=== PATIENT | male | born 1980 | race African-American/Black ===

== ENCOUNTER 2017-06-15 13:14 | Emergency (ER) | payer SELFPAY | END 2017-06-15 13:20 | disposition left against medical advice (07) | LOC: UCEAST 13:14 | DX: Z53.21 Procedure and treatment not carried out due to patient leaving prior to being seen by health care provider (principal) ==

== ENCOUNTER 2018-06-07 11:27 | Emergency (ER) | payer OTHER ==
[2018-06-07 11:52] VITALS: BP 103/72
--- NOTE | 2018-06-16 21:37 | UC ---
Back Pain HPI - HPI Summary HPI Summary: ONSET OF LOW BACK PAIN AFTER PLAYING SOCCER COUPLE OF DAYS AGO. WORSE WITH MOVEMENT. DENIES NUMBNESS/TINGLING OF HIS LOWER EXTREMITIES. NO SADDLE ANESTHESIA. NO LOSS OF BOWEL OR BLADDER CONTROL. THINKS HE MIGHT HAVE PULLED A MUSCLE. - History of Current Complaint Chief Complaint: UCBackPain Stated Complaint: BACK PAIN Time Seen by Provider: 06/07/18 12:37 Hx Obtained From: Patient Onset/Duration: Sudden Onset, Lasting Days, Still Present Timing: Constant Severity Initially: Moderate Severity Currently: Moderate Pain Intensity: 7 Pain Scale Used: 0-10 Numeric Back Pain: Is Discrete @ - low back Aggravating Factor(s): Movement Alleviating Factor(s): Rest Associated Signs And Symptoms: Negative: Swelling, Redness, Bruising, Numbness, Tingling, Abdominal Pain, Bladder Incontinence, Bowel Incontinence - Allergies/Home Medications Allergies/Adverse Reactions: Allergies Allergy/AdvReac Type Severity Reaction Status Date / Time No Known Allergies Allergy Verified 06/07/18 11:51 PMH/Surg Hx/FS Hx/Imm Hx Previously Healthy: Yes Other History Of: Negative For: HIV, Hepatitis B, Hepatitis C, Anticoagulant Therapy - Surgical History Surgical History: None - Family History Known Family History: Positive: Diabetes Negative: Cardiac Disease, Hypertension - Social History Alcohol Use: None Substance Use Type: None Smoking Status (MU): Never Smoked Tobacco Review of Systems Constitutional: Negative Skin: Negative Respiratory: Negative Cardiovascular: Negative Gastrointestinal: Negative Musculoskeletal: Arthralgia, Decreased ROM, Myalgia All Other Systems Reviewed And Are Negative: Yes Physical Exam Triage Information Reviewed: Yes Appearance: Well-Appearing, No Pain Distress, Well-Nourished Vital Signs: Initial Vital Signs Temp 98.7 F 06/07/18 11:48 Pulse 85 06/07/18 11:48 Resp 18 06/07/18 11:48 BP 103/72 06/07/18 11:48 Pulse Ox 97 06/07/18 11:48 Vital Signs Reviewed: Yes Eyes: Positive: Conjunctiva Clear ENT: Positive: Hearing grossly normal Neck: Positive: Supple Respiratory: Positive: No respiratory distress, No accessory muscle use Cardiovascular: Positive: Pulses Normal Abdomen Description: Positive: Soft Musculoskeletal: Positive: No Edema, ROM Limited @ - BACK, Other: - NO TENDERNESS OVER SPINE. MILDLY TENDER PARASPINOUS MUSCLES LOW BACK Neurological: Positive: Alert Psychological: Positive: Age Appropriate Behavior Skin: Negative: rashes Back Pain Course/Dx - Differential Dx/Diagnosis Provider Diagnoses: ACUTE LOW BACK STRAIN Discharge - Sign-Out/Discharge Documenting (check all that apply): Patient Departure All imaging exams completed and their final reports reviewed: No Studies - Discharge Plan Condition: Stable Disposition: HOME Prescriptions: Cyclobenzaprine TAB* [Flexeril TAB*] 10 mg PO BID PRN #30 tab PRN Reason: Pain HYDROcodone/ACETAMIN 5-325 MG* [[place] 5-325 TAB*] 1 tab PO Q6H PRN #10 tab MDD 4 PRN Reason: Pain Naproxen [Naproxen EC] 500 mg PO BID PRN #30 tab PRN Reason: Pain Patient Education Materials: Muscle Strain (ED), Low Back Strain (ED) Referrals: No Primary Care Phys,NOPCP [Primary Care Provider] - Additional Instructions: YOUR SYMPTOMS SHOULD IMPROVE SIGNIFICANTLY OVER THE NEXT 1-2 WEEKS. IF YOU DO NOT IMPROVE EXPECTED FOLLOW-UP WITH YOUR PCP. YOU MAY BENEFIT FROM IMAGING AT THAT TIME. REST. TAKE MUSCLE RELAXER BEFORE BED. NAPROXEN TWICE DAILY. HYDROCODONE FOR BREAKTHROUGH PAIN. BE SURE TO GO THROUGH SLOW RANGE OF MOTION AND STRETCHING EXERCISES DAILY YOU ARE ABLE TO PREVENT STIFFENING UP AND MAKING THE DISCOMFORT WORSE. GO TO THE ED WITHOUT FAIL IF YOU DEVELOP NUMBNESS/TINGLING IN YOUR LEGS, NUMBNESS IN THE GENITAL REGION, LOSS OF BOWEL/BLADDER CONTROL, INTOLERABLE PAIN OR ANY OTHER CONCERNING SYMPTOMS. - Billing Disposition and Condition Condition: STABLE Disposition: Home
== END 2018-06-07 13:00 | disposition home or self-care (01) ==
LOC: UCEAST 11:27
DX: S39.012A Strain of muscle, fascia and tendon of lower back, initial encounter (principal); X58.XXXA Exposure to other specified factors, initial encounter; Y93.66 Activity, soccer; Y92.322 Soccer field as the place of occurrence of the external cause
CPT/HCPCS: 99212; G0463

== ENCOUNTER 2019-01-24 21:54 | Emergency (ER) | payer OTHER ==
[2019-01-24 22:10] VITALS: BP 103/73
[2019-01-24] MEDS ORDERED: Ondansetron ODT TAB* 4 MG SL ONE (22:17)
[2019-01-24] MEDS ORDERED: Acetaminophen TAB* 325 MG PO ONE (22:18)
--- NOTE | 2019-01-24 22:25 | UC ---
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 Fasting all day for [place], out mowing lawn in heat, headache is diffuse, no neck stiffness since 8PM, no improvement with PO Motrin. Patient does not want to drink due to nausea. no prior occurence. - History Of Current Complaint Chief Complaint: UCHeadache Stated Complaint: HEADACHE, AND NAUSEA Time Seen by Provider: 01/24/19 22:06 Hx Obtained From: Patient Onset/Duration: Sudden Onset, Lasting Hours Onset Of Symptoms: Sudden Initially Headache Was: Moderate Currently Pain Is: Severe Pain Intensity: 8 Pain Scale Used: 0-10 Numeric Timing: Constant Character: Pressure Location of Headache: Diffuse Aggravating Factor(s): Nothing Allevating Factor(s): Nothing - Allergies/Home Medications Allergies/Adverse Reactions: Allergies Allergy/AdvReac Type Severity Reaction Status Date / Time No Known Allergies Allergy Verified 01/24/19 22:10 Home Medications: Home Medications Ibuprofen TAB* [Advil TAB*] 400 mg PO ONCE PRN 01/24/19 [History Confirmed 01/24] PMH/Surg Hx/FS Hx/Imm Hx Previously Healthy: Yes Other History Of: Negative For: HIV, Hepatitis B, Hepatitis C, Anticoagulant Therapy - Surgical History Surgical History: None - Family History Known Family History: Positive: Diabetes Negative: Cardiac Disease, Hypertension - Social History Alcohol Use: None Substance Use Type: None Smoking Status (MU): Never Smoked Tobacco Review of Systems All Other Systems Reviewed And Are Negative: Yes Constitutional: Positive: Negative Gastrointestinal: Positive: Nausea. Negative: Vomiting, Diarrhea Neurological: Positive: Headache Is Patient Immunocompromised?: No Physical Exam Triage Information Reviewed: Yes Appearance: Well-Appearing, No Pain Distress, Well-Nourished Vital Signs: Initial Vital Signs Temp 97.1 F 01/24/19 22:05 Pulse 62 01/24/19 22:05 Resp 16 01/24/19 22:05 BP 103/73 01/24/19 22:05 Pulse Ox 100 01/24/19 22:05 Vital Signs Reviewed: Yes Eyes: Positive: Conjunctiva Clear, Other: - EMOI, PERRLA. Negative: Discharge ENT: Positive: Hearing grossly normal Neck: Positive: Supple, Nontender, No Lymphadenopathy. Negative: Nuchal Rigidity, Enlarged Nodes @ Respiratory: Positive: Chest non-tender, Lungs clear, Normal breath sounds, No respiratory distress, No accessory muscle use. Negative: Crackles, Rhonchi, Stridor, Wheezing Cardiovascular: Positive: RRR, No Murmur Neurological Exam: Normal Neurological: Positive: Alert Psychological Exam: Normal Skin Exam: Normal Headache Course/Dx - Course Course Of Treatment: Dehydration due to fasting, improved with zofran, able to tolerate fluids & crackers. Tylenol for headache, return to ER if symptoms worsen. - Differential Dx/Diagnosis Differential Diagnosis/HQI/PQRI: Subdural Hematoma, Meningitis, Tension Headache Provider Diagnosis: Dehydration Discharge - Sign-Out/Discharge Documenting (check all that apply): Patient Departure All imaging exams completed and their final reports reviewed: No Studies - Discharge Plan Condition: Fair Disposition: HOME Prescriptions: Ondansetron ODT TAB* [Zofran 4 MG Odt TAB*] 4 mg PO Q8H PRN #5 tab.odt PRN Reason: Nausea Patient Education Materials: Dehydration (ED) Forms: *Work Release Referrals: No Primary Care Phys,NOPCP [Primary Care Provider] - Additional Instructions: - Continue drinking water overnight to continue to hydrate body in anticipation for fasting tomorrow. - Medically necessary to drink water tomorrow if symptoms return otherwise you risk serious health complications - Avoid sunlight/ hot areas tomorrow while fasting. - Billing Disposition and Condition Condition: FAIR Disposition: Home
== END 2019-01-24 22:45 | disposition home or self-care (01) ==
LOC: UCEAST 21:54
DX: E86.0 Dehydration (principal)
CPT/HCPCS: 99212; A9270-GY; G0463

== ENCOUNTER 2019-12-14 16:43 | Emergency (ER) | payer OTHER ==
--- NOTE | 2019-12-14 17:01 | UC ---
General HPI - HPI Summary HPI Summary: 39yo male presenting with concern for lyme disease after having a tick bite "between 1 and 2 weeks ago." Patient states he came in today because a friend told him that he "needs to have a test done because lyme disease can kill people." Patient states the tick was attached for less than 24 hours and was not engorged. Denies any redness, warmth, rash, or drainage form the area. Notes subjective fever 4 days ago but states he "took an advil and it went away. " Denies JENKINS, myalgias, arthralgias, motor weakness, fatigue, lethargy, and neck stiffness. Normal appetite as well. - History of Current Complaint Stated Complaint: TICK BITE Hx Obtained From: Patient Pain Intensity: 0 - Allergy/Home Medications Allergies/Adverse Reactions: Allergies Allergy/AdvReac Type Severity Reaction Status Date / Time No Known Allergies Allergy Verified 12/14/19 16:53 Home Medications: Home Medications Ibuprofen TAB* [Advil TAB*] 400 mg PO ONCE PRN 01/24/19 [History Confirmed 12/13] PMH/Surg Hx/FS Hx/Imm Hx Previously Healthy: Yes Other History Of: Negative For: HIV, Hepatitis B, Hepatitis C, Anticoagulant Therapy - Surgical History Surgical History: None - Family History Known Family History: Positive: Diabetes Negative: Cardiac Disease, Hypertension - Social History Alcohol Use: None Substance Use Type: None Smoking Status (MU): Never Smoked Tobacco Review of Systems All Other Systems Reviewed And Are Negative: Yes Constitutional: Positive: Fever - subjective 4 days ago. Negative: Chills, Fatigue Respiratory: Positive: Negative Cardiovascular: Positive: Negative Gastrointestinal: Positive: Negative Motor: Positive: Negative. Negative: Weakness Musculoskeletal: Positive: Negative. Negative: Arthralgia, Myalgia Neurological/Mental Status: Positive: Negative. Negative: Headache, Weakness Physical Exam - Summary Physical Exam Summary: Vital Signs Reviewed: Yes A+Ox3, no distress, well-appearing Eyes: Conjunctiva Clear ENT: Hearing grossly normal Neck: Positive: Supple Respiratory: Positive: No respiratory distress, No accessory muscle use + CTA throughout no w/r Cardiovascular: RRR nl s1, s2 no m/r Musculoskeletal Exam: MCKEON x 4 without difficulty Neurological: Positive: Alert Psychological: Positive: age appropriate behavior Skin: Positive: small 3mm round scab noted where tick was attached on R upper arm, no rash or evidence of EM, no erythema or warmth, no TTP, no edema, no ecchymosis Course/Dx - Course Course Of Treatment: 39yo male presenting with concern for lyme disease after having a tick bite "between 1 and 2 weeks ago." Patient states he came in today because a friend told him that he "needs to have a test done because lyme disease can kill people." Patient states the tick was attached for less than 24 hours and was not engorged. Denies any redness, warmth, rash, or drainage form the area. Notes subjective fever 4 days ago but states he "took an advil and it went away. " Denies JENKINS, myalgias, arthralgias, motor weakness, fatigue, lethargy, and neck stiffness. Normal appetite as well. I reassured the patient that based on history and normal PE findings, no further treatment is needed for his tick bite at this time. I educated on tick bites and s/s of lyme disease. I instructed the patient to continue to monitor for rash and other s/s discussed today and to follow up with physician referral if any red flags occur. Patient voiced understanding and agreed with the plan. - Diagnoses Provider Diagnosis: Tick bite of right upper arm Discharge ED - Sign-Out/Discharge Documenting (check all that apply): Patient Departure All imaging exams completed and their final reports reviewed: No Studies - Discharge Plan Condition: Stable Disposition: HOME Patient Education Materials: Lyme Disease (ED), Tick Bite (ED) Referrals: [facility] [Outside] - If Needed Additional Instructions: As discussed, there is no further treatment needed for your tick bite at this time. You are at low risk for developing Lyme disease but should continue to monitor yourself for signs of Lyme disease that we discussed today. Information on tick bites and lyme disease have been provided to you today. Follow up with the physician referral listed below if you develop any new symptoms. - Billing Disposition and Condition Condition: STABLE Disposition: Home - Attestation Statements Provider Attestation: I was available for consult. This patient was seen by the GAETANO. The patient was not presented to , seen by or examined by -Bijan Berman MD
[2019-12-14 17:03] VITALS: BP 121/78
== END 2019-12-14 17:32 | disposition home or self-care (01) ==
LOC: UCEAST 16:43
DX: S40.861A Insect bite (nonvenomous) of right upper arm, initial encounter (principal); W57.XXXA Bitten or stung by nonvenomous insect and other nonvenomous arthropods, initial encounter; Y92.9 Unspecified place or not applicable
CPT/HCPCS: 99211; G0463